=== PATIENT | female | born 1960 | race American Indian/Alaskan Native ===

== ENCOUNTER 2018-03-12 21:49 | Emergency (ER) | payer MEDICAID, MEDICARE ==
[~2018-03-12] VITALS: Ht 162.6 cm; Wt 59.0 kg
[2018-03-12] MEDS ORDERED: HYDR-3280 PO (23:04)
[2018-03-12] MEDS ORDERED: OMEP20CA10 PO (23:04)
[2018-03-12] MEDS ORDERED: BUSP5TAB3 MT (23:04)
[2018-03-12] MEDS ORDERED: ESTR1TAB17 PO (23:04)
[2018-03-12] MEDS ORDERED: ATEN50TA MT (23:04)
[2018-03-12] MEDS ORDERED: LORA1TAB MT (23:04)
[2018-03-12] MEDS ORDERED: MORP100T20 PO (23:04)
[2018-03-12] MEDS ORDERED: ALBU18HF2 IH (23:04)
[2018-03-12] MEDS ORDERED: LIDO30CR TP (23:04)
[2018-03-12] MEDS ORDERED: IMIP25TA6 MT (23:04)
[2018-03-12] MEDS ORDERED: ATROV INH (23:04)
[2018-03-12] MEDS ORDERED: [UNRECOGNIZED DRUG - CODE] PO (23:04)
[2018-03-12] MEDS ORDERED: MAGN400T26 MT (23:04)
[2018-03-12] MEDS ORDERED: PREG75CA MT (23:04)
[2018-03-12] MEDS ORDERED: ESTR2TAB5 MT (23:04)
[2018-03-13 05:10] VITALS: BP 138/82
== END 2018-03-13 05:40 | disposition home or self-care (01) ==
LOC: ER 23:40
DX: M79.604 Pain in right leg (principal); J45.909 Unspecified asthma, uncomplicated; M79.7 Fibromyalgia; G89.29 Other chronic pain; M48.00 Spinal stenosis, site unspecified; I25.10 Atherosclerotic heart disease of native coronary artery without angina pectoris; Z85.3 Personal history of malignant neoplasm of breast; Z98.1 Arthrodesis status; Z90.49 Acquired absence of other specified parts of digestive tract; Z90.710 Acquired absence of both cervix and uterus
CPT/HCPCS: 73590; 73610; 93971; 99284